=== PATIENT | female | born 1985 | race Two or more races ===

== ENCOUNTER 2021-07-28 21:02 | Emergency (ER) | payer MEDICAID, OTHER ==
[~2021-07-28] VITALS: Ht 160 cm; Wt 84.8 kg
[2021-07-29] MEDS ORDERED: ACET325T10 PO (02:07)
[2021-07-29 02:24] VITALS: BP 121/71
== END 2021-07-29 04:35 | disposition home or self-care (01) ==
LOC: ER 21:02
DX: O26.893 Other specified pregnancy related conditions, third trimester (principal); M79.605 Pain in left leg; Z79.899 Other long term (current) drug therapy; Z3A.36 36 weeks gestation of pregnancy; X58.XXXA Exposure to other specified factors, initial encounter; Y93.89 Activity, other specified; Y92.89 Other specified places as the place of occurrence of the external cause; Y99.8 Other external cause status
CPT/HCPCS: 93971

== ENCOUNTER 2021-08-04 10:43 | Observation (INO) | payer MEDICAID ==
[~2021-08-04 10:43] MED LIST: ACET325T10 PO
[2021-08-04] MEDS ORDERED: PREN-96 PO (12:14)
== END 2021-08-04 12:40 | disposition home or self-care (01) ==
LOC: LDRP 10:43
PROVIDERS: ADMIT Obstetrics & Gynecology; ATTEND Obstetrics & Gynecology
DX: O42.913 Preterm premature rupture of membranes, unspecified as to length of time between rupture and onset of labor, third trimester (principal); O62.9 Abnormality of forces of labor, unspecified; Z3A.36 36 weeks gestation of pregnancy
CPT/HCPCS: 59025; 81002; 84112; 94760; G0378; Q0114

== ENCOUNTER 2021-08-22 04:04 | Inpatient (IN) | payer MEDICAID ==
[2021-08-20 11:03] LABS: Basophils # (auto) 0 10 ^3/uL (0-0.2); Basophils % (auto) 0.3 % (0.0-2.0); Eosinophils # (auto) 0 10 ^3/uL (0-0.8); Eosinophils % (auto) 0.5 % (0.0-7.0); Hematocrit 31.7 % (36.0-46.0); Hemoglobin 11.2 g/dL (12.2-16.2); Lymphocytes # (auto) 1.4 10 ^3/uL (0.4-5.4); Lymphocytes % (auto) 24.5 % (10.0-50.0); Mean Corpuscular Hemoglobin 33.1 pg (28.0-32.0); Mean Corpuscular Hgb Conc. 35.2 g/dL (32.0-36.0); Monocytes # (auto) 0.4 10 ^3/uL (0-1.3); Monocytes % (auto) 6.9 % (0.0-12.0); Neutrophils % (auto) 67.8 % (37.0-80.0); Nucleated Red Blood Cells % 0.1 %; Red Blood Cells 3.37 10^6/uL (4.0-5.20); Red Cell Distribution Width 13.9 % (11.8-14.3); White Blood Cell 5.9 10^3/uL (4.4-10.8)
[2021-08-20 11:17] LABS: INR 0.96 (0.9-1.15); Partial Thromboplastin Time 24.5 sec (23.6-33.0)
[2021-08-20 11:39] LABS: Albumin 2.4 g/dL (3.4-5.0); BUN/Creatinine Ratio 17.2; Calcium 8.6 mg/dL (8.5-10.1); Potassium 3.8 mmol/L (3.5-5.1)
[2021-08-20 11:44] LABS: Bilirubin, Total 0.4 mg/dL (0.2-1.0); Total Protein 6.6 g/dL (6.4-8.2)
[2021-08-21 08:06] LABS: RPR Non Reactive (Non Reactive)
[2021-08-22] VITALS (19 sets, daily range): BP systolic 90–123; BP diastolic 46–76
[~2021-08-22] VITALS: Ht 160 cm; Wt 87.5 kg
[~2021-08-22 04:04] MED LIST changes: +PREN-96 PO
[2021-08-22] MEDS ORDERED: LACTATED RINGER'S 1,000 ML IV ONE (05:00)
[2021-08-22 05:07] LABS: Amphetamine Screen, Urine NEGATIVE (NEGATIVE); Barbiturate Scree,Urine NEGATIVE (NEGATIVE); Benzodiazephine Screen, Urine NEGATIVE (NEGATIVE); Cannabinoid Screen, Urine NEGATIVE (NEGATIVE); Cocaine Screen, Urine NEGATIVE (NEGATIVE); Opiate Scree,Urine NEGATIVE (NEGATIVE); Phencyclidine Screen, Urine NEGATIVE (NEGATIVE)
[2021-08-22 05:11] LABS: Urine Bacteria FEW /hpf (None Seen); Urine Blood 1+ /uL (Negative); Urine Specific Gravity 1.014 (1.001-1.035); Urine WBC 5 /hpf (0 - 5)
[2021-08-22 05:19] LABS: Alcohol, Urine < 3.0 mg/dL (0-10)
[2021-08-22] MEDS: LACTATED RINGER'S 1,000 ML IV SCH ×2 (05:42→15:55)
[2021-08-22] MEDS ORDERED: ceFAZolin 1GM/50ML 50 ML IV ONE (06:00)
[2021-08-22] MEDS ORDERED: TETRACAINE 1% INJ 2 ML VIAL IJ ONE (06:55)
[2021-08-22] MEDS ORDERED: SUCCINYLCHOLINE CHLORIDE 20 MG/ML 10ML VIAL IV ONE (06:57)
[2021-08-22] MEDS ORDERED: DexAMETHasone SOD PHOS 10MG/1ML VIAL INJ ONE (07:06)
[2021-08-22] MEDS ORDERED: oxyTOCIN 10 UNIT/ML 10ML VIAL ONE (07:06)
[2021-08-22] MEDS ORDERED: EPINEPHrine HCL 1 MG/1 ML AMP ONE (07:06)
[2021-08-22] MEDS ORDERED: ONDANSETRON HCL 4 MG/2 ML VIAL ONE (07:06)
[2021-08-22] MEDS ORDERED: MIDAZOLAM HCL 2MG/2ML 2ml VIAL (1mg/ml) ONE (07:06)
[2021-08-22] MEDS ORDERED: fentaNYL CITRATE 100 MCG/2 ML VL ONE (07:06)
[2021-08-22] MEDS ORDERED: MORPHINE SULF PF 5 MG/10 ML VIAL ONE (07:06)
[2021-08-22] MEDS ORDERED: BUPIVACAINE/DEXTROSE MPF 0.75% 2 ML AMP IT ONE (07:06)
[2021-08-22] MEDS ORDERED: SODIUM CHLORIDE LOCK 10 ML ONE (07:06)
[2021-08-22] MEDS ORDERED: ePHEDrine SULFATE 50 MG/ML AMP ONE ×2 (07:07→07:40)
[2021-08-22] MEDS ORDERED: GUM (CHEWING) 1 GUM CHEW CHEW ONE (07:45)
[2021-08-22] MEDS ORDERED: ONDANSETRON HCL 4 MG/2 ML VIAL IV PRN (07:45)
[2021-08-22] MEDS ORDERED: LACT. RINGERS/OXYTOCIN 20UNITS 1,000 ML IV ONE (07:45)
[2021-08-22] MEDS ORDERED: HYDROmorphone HCL 2 MG/ML VL/or syr IV PRN (09:15)
[2021-08-22] MEDS ORDERED: MORPHINE SULFATE 4 MG/ML SYR/VIAL IV PRN (09:15)
[2021-08-22] MEDS ORDERED: diphenhdrAMINE HCL 50 MG/1 ML VL IV PRN (09:15)
[2021-08-22] MEDS ORDERED: METOCLOPRAMIDE HCL 5MG/ml INJ 2ml VIAL IV PRN (09:15)
[2021-08-22] MEDS ORDERED: NALOXONE HCL 0.4 MG/ML VIAL IV PRN (09:15)
[2021-08-22] MEDS ORDERED: HYDR-4902 PO (10:53)
[2021-08-22] MEDS ORDERED: DOCU-94 PO (10:53)
[2021-08-22] MEDS ORDERED: IBUP800T27 PO (10:53)
[2021-08-22] MEDS: ACETAMINOPHEN IV 1000 MG/100ML (10MG/ML) IV PRN (12:26)
[2021-08-22] MEDS ORDERED: ceFAZolin 1GM/50ML 50 ML IV SCH (15:00)
[2021-08-22] MEDS: ceFAZolin 1GM/50ML 50 ML IV SCH (15:56)
[2021-08-22 21:38] LABS: Basophils # (auto) 0 10 ^3/uL (0-0.2); Basophils % (auto) 0.1 % (0.0-2.0); Eosinophils # (auto) 0 10 ^3/uL (0-0.8); Hematocrit 30.6 % (36.0-46.0); Hemoglobin 10.6 g/dL (12.2-16.2); Lymphocytes # (auto) 1.2 10 ^3/uL (0.4-5.4); Lymphocytes % (auto) 8.3 % (10.0-50.0); Mean Corpuscular Hemoglobin 32.4 pg (28.0-32.0); Mean Corpuscular Hgb Conc. 34.8 g/dL (32.0-36.0); Mean Corpuscular Volume 93.2 fL (80.0-100.0); Monocytes # (auto) 0.5 10 ^3/uL (0-1.3); Monocytes % (auto) 3.3 % (0.0-12.0); Neutrophils # (auto) 12.9 10 ^3/uL (1.6-8.6); Neutrophils % (auto) 88.3 % (37.0-80.0); Red Blood Cells 3.28 10^6/uL (4.0-5.20); Red Cell Distribution Width 13.9 % (11.8-14.3); White Blood Cell 14.6 10^3/uL (4.4-10.8)
[2021-08-23] VITALS (13 sets, daily range): BP systolic 93–120; BP diastolic 56–72
[2021-08-23] MEDS: ACETAMINOPHEN IV 1000 MG/100ML (10MG/ML) IV PRN ×2 (00:18→06:38)
[2021-08-23] MEDS: ceFAZolin 1GM/50ML 50 ML IV SCH ×2 (00:18→09:41)
[2021-08-23] MEDS: LACTATED RINGER'S 1,000 ML IV SCH (00:23)
[2021-08-23 06:28] LABS: Basophils # (auto) 0 10 ^3/uL (0-0.2); Basophils % (auto) 0.3 % (0.0-2.0); Eosinophils # (auto) 0 10 ^3/uL (0-0.8); Hematocrit 26.5 % (36.0-46.0); Hemoglobin 9.3 g/dL (12.2-16.2); Lymphocytes # (auto) 1.9 10 ^3/uL (0.4-5.4); Lymphocytes % (auto) 15.8 % (10.0-50.0); Mean Corpuscular Hemoglobin 32.9 pg (28.0-32.0); Mean Corpuscular Hgb Conc. 35.2 g/dL (32.0-36.0); Mean Corpuscular Volume 93.5 fL (80.0-100.0); Monocytes # (auto) 0.8 10 ^3/uL (0-1.3); Monocytes % (auto) 6.8 % (0.0-12.0); Neutrophils # (auto) 9.1 10 ^3/uL (1.6-8.6); Neutrophils % (auto) 77.1 % (37.0-80.0); Red Blood Cells 2.84 10^6/uL (4.0-5.20); Red Cell Distribution Width 13.6 % (11.8-14.3); White Blood Cell 11.8 10^3/uL (4.4-10.8)
[2021-08-23] MEDS ORDERED: SODIUM CHLORIDE 0.9% 1,000 ML IV SCH (06:30)
[2021-08-23] MEDS ORDERED: LACTATED RINGER'S 1,000 ML IV SCH (06:30)
[2021-08-23] MEDS ORDERED: HYDROcodone-ACET 5/325MG TAB PO PRN (09:30)
[2021-08-23] MEDS: DOCUSATE SOD 100 MG CAP PO SCH ×2 (09:41→22:33)
[2021-08-23] MEDS: HYDROcodone-ACET 5/325MG TAB PO PRN ×3 (09:41→17:21)
[2021-08-23] MEDS: SIMETHICONE 80 MG CHEWABLE TABLET PO SCH ×3 (09:41→22:33)
[2021-08-23] MEDS ORDERED: DOCUSATE CALCIUM 240 MG CAP PO SCH (10:00)
[2021-08-23] MEDS: IBUPROFEN 800 MG TAB PO PRN ×2 (11:27→19:01)
[2021-08-24 03:00] VITALS: BP 104/70
[2021-08-24] MEDS: SIMETHICONE 80 MG CHEWABLE TABLET PO SCH ×4 (05:36→21:33)
[2021-08-24] MEDS: IBUPROFEN 800 MG TAB PO PRN ×3 (05:46→23:54)
[2021-08-24 07:15] VITALS: BP 108/75
[2021-08-24] MEDS: BISACODYL 10 MG RECT SUPP PR PRN ×2 (07:30→10:48)
[2021-08-24] MEDS: DOCUSATE SOD 100 MG CAP PO SCH ×2 (10:29→21:33)
[2021-08-24 10:32] VITALS: BP 104/66
[2021-08-24 15:30] VITALS: BP 126/81
[2021-08-24 18:30] VITALS: BP 111/68
[2021-08-24 23:00] VITALS: BP 115/76
[2021-08-25 03:30] VITALS: BP 100/68
[2021-08-25] MEDS: SIMETHICONE 80 MG CHEWABLE TABLET PO SCH (05:57)
[2021-08-25 06:55] VITALS: BP 108/68
== END 2021-08-25 09:07 | disposition home or self-care (01) | DRG 540 ==
LOC: LDRP 04:04
PROVIDERS: ADMIT Obstetrics & Gynecology; ATTEND Obstetrics & Gynecology
PROC: 10D00Z1 Extraction of Products of Conception, Low, Open Approach (ICD-10-PCS; principal; 2021-08-22 07:24)
DX: O34.211 Maternal care for low transverse scar from previous cesarean delivery (principal); Z20.822 Contact with and (suspected) exposure to COVID-19; Z37.0 Single live birth; Z3A.38 38 weeks gestation of pregnancy
CPT/HCPCS: 36415; 59025; 80053; 80307; 81001; 85025; 85610; 85730; 86592; 86850; 86900; 86901; 94760; 94762; 96360; 96361; 96366; G0378; J0131; J0171; J0330; J0690; J1100; J2250; J2405; J2590

== ENCOUNTER 2023-03-19 11:35 | Emergency (ER) | payer MEDICAID ==
[~2023-03-19] VITALS: Ht 167.6 cm; Wt 63.6 kg
[~2023-03-19 11:35] MED LIST changes: +ACET-1882 PO; -ACET325T10 PO; +DOCU-94 PO; +HYDR-4902 PO; +IBUP-1456 PO
[2023-03-19] MEDS ORDERED: LORazepam 0.5 MG TAB PO ONE (13:15)
[2023-03-19 13:19] VITALS: BP 120/74; PULSE 78; RESP 18; TEMP 98.6; O2SAT 99
[2023-03-19 13:48] LABS: Basophils # (auto) 0 10 ^3/uL (0-0.2); Basophils % (auto) 0.5 % (0.0-2.0); Eosinophils # (auto) 0 10 ^3/uL (0-0.8); Eosinophils % (auto) 0.2 % (0.0-7.0); Hematocrit 38.4 % (36.0-46.0); Lymphocytes # (auto) 1.8 10 ^3/uL (0.4-5.4); Lymphocytes % (auto) 21.4 % (10.0-50.0); Mean Corpuscular Hemoglobin 30.5 pg (28.0-32.0); Mean Corpuscular Hgb Conc. 33.7 g/dL (32.0-36.0); Mean Corpuscular Volume 90.6 fL (80.0-100.0); Monocytes # (auto) 0.5 10 ^3/uL (0-1.3); Monocytes % (auto) 6.1 % (0.0-12.0); Neutrophils # (auto) 6.2 10 ^3/uL (1.6-8.6); Neutrophils % (auto) 71.8 % (37.0-80.0); Red Blood Cells 4.24 10^6/uL (4.0-5.20); Red Cell Distribution Width 12.7 % (11.8-14.3); White Blood Cell 8.6 10^3/uL (4.4-10.8)
[2023-03-19 13:59] LABS: Chloride 105 mmol/L (98-107); Potassium 3.8 mmol/L (3.5-5.1); Sodium 136 mmol/L (136-145)
[2023-03-19 14:00] LABS: Anion Gap 7 (5-15); Calcium 8.8 mg/dL (8.7-10.4); Carbon Dioxide 24 mmol/L (20-30)
[2023-03-19 14:05] LABS: BUN/Creatinine Ratio 14.3 (10.0-20.0); Blood Urea Nitrogen 10 mg/dL (9-23); Glucose 95 mg/dL (74-106)
[2023-03-19] MEDS ORDERED: HYDR25CA PO (14:22)
== END 2023-03-19 14:42 | disposition home or self-care (01) ==
LOC: ER 11:35
DX: F41.1 Generalized anxiety disorder (principal); Z79.899 Other long term (current) drug therapy
CPT/HCPCS: 36415; 80048; 84484; 85025

== ENCOUNTER 2023-12-26 15:13 | Emergency (ER) | payer MEDICAID, OTHER ==
[~2023-12-26] VITALS: Ht 160 cm; Wt 69.6 kg
[~2023-12-26 15:13] MED LIST changes: +HYDR25CA PO
[2023-12-26 16:11] LABS: Basophils # (auto) 0 10 ^3/uL (0-0.2); Basophils % (auto) 0.6 % (0.0-2.0); Eosinophils # (auto) 0 10 ^3/uL (0-0.8); Eosinophils % (auto) 0.4 % (0.0-7.0); Hematocrit 35.8 % (36.0-46.0); Hemoglobin 12.4 g/dL (12.2-16.2); Lymphocytes # (auto) 2.6 10 ^3/uL (0.4-5.4); Lymphocytes % (auto) 34.3 % (10.0-50.0); Mean Corpuscular Hemoglobin 31.5 pg (28.0-32.0); Mean Corpuscular Hgb Conc. 34.6 g/dL (32.0-36.0); Monocytes # (auto) 0.5 10 ^3/uL (0-1.3); Monocytes % (auto) 6.1 % (0.0-12.0); Neutrophils # (auto) 4.5 10 ^3/uL (1.6-8.6); Neutrophils % (auto) 58.6 % (37.0-80.0); Platelet Count (auto) 244 10^3/uL (140-450); Red Blood Cells 3.93 10^6/uL (4.0-5.20); Red Cell Distribution Width 12.5 % (11.8-14.3); White Blood Cell 7.6 10^3/uL (4.4-10.8)
[2023-12-26 16:34] LABS: Alanine Aminotransferase 18 U/L (7-40); Albumin 4.1 g/dL (3.2-4.8); Alkaline Phosphatase 61 U/L (46-116); Anion Gap 5 (5-15); Aspartate Aminotransferase 12 U/L (13-40); BUN/Creatinine Ratio 19.4 (10.0-20.0); Bilirubin, Total 0.9 mg/dL (0.2-1.0); Blood Urea Nitrogen 14 mg/dL (9-23); Calcium 8.7 mg/dL (8.7-10.4); Carbon Dioxide 24 mmol/L (20-30); Chloride 108 mmol/L (98-107); Glucose 93 mg/dL (74-106); Lipase 40 U/L (12-53); Potassium 3.6 mmol/L (3.5-5.1); Sodium 137 mmol/L (136-145); Total Protein 6.8 g/dL (5.7-8.2)
[2023-12-26 16:41] VITALS: TEMP 98.1
[2023-12-26 16:42] VITALS: O2SAT 94
[2023-12-26] MEDS: ONDANSETRON HCL 4 MG/2 ML VIAL IV ONE (16:56)
[2023-12-26] MEDS: MORPHINE SULFATE 4 MG/ML SYR/VIAL IV ONE (16:57)
[2023-12-26 18:12] LABS: Urine Bacteria None Seen /hpf (None Seen)
[2023-12-26 18:31] LABS: Urine Blood 1+ /uL (Negative); Urine Clarity Clear (Clear); Urine Color Light-Yellow (Yellow); Urine Protein, UAD Negative (Negative); Urine Specific Gravity 1.016 (1.001-1.035); Urine Urobilinogen Normal (Negative); Urine WBC 2 /hpf (0 - 5); Urine pH 5.5 (5.0-9.0)
[2023-12-26 19:35] VITALS: BP 99/58; PULSE 62; RESP 18; O2SAT 99
[2023-12-26] MEDS: ONDANSETRON HCL 4 MG/2 ML VIAL IM ONE (19:37)
[2023-12-26] MEDS: MORPHINE SULFATE 4 MG/ML SYR/VIAL IM ONE (19:37)
== END 2023-12-26 19:40 | disposition home or self-care (01) ==
LOC: ER 15:13
DX: K80.20 Calculus of gallbladder without cholecystitis without obstruction (principal)
CPT/HCPCS: 36415; 76705; 80053; 81001; 83690; 85025; 96374; 96375; 99285; J2270; J2405